=== PATIENT | female | born 1955 | race Caucasian/White ===

== ENCOUNTER → 2017-06-20 | Outpatient (CLI) | payer MEDICARE, MEDICAID ==
[2014-01-02 12:57] VITALS: BMI 30.4
[~2017-06-20] MED LIST: ALBU8.5H IH; ARIP10TA4 PO; ASPI-1471 PO; ATOR40TA69 PO; BUPR-126 PO; CHOL100062 PO; CLIN300C99 PO; CLON-298; DESV50TA9; DESV50TA9 PO; ESOM40CA42 PO; EZET10TA41 PO; FLUT1DIS29 IH; FURO-47; GABA-549 PO; GUAI1200 PO; LEVO75TA73 PO; LOSA25TA50 PO; Levofloxacin PO; MELA3TAB14; MELA5TAB6 PO; MORP60CA7 PO; MORP80CA; MORP80CA PO; MULT1TAB64 PO; Morphine Sulfate PO; OXYC-375 PO; OXYC-823 PO; OXYC15TA79 PO; OXYC30TA79; OXYC30TA79 PO; OXYC5TAB38 PO; Oxycodone Hcl PO; POTA-23; PRED20TA6 PO; PROM-110 PO; RALO60TA PO; RALO60TA12 PO; RAME8TAB43 PO; ROZEREM; SENN8.6T34 PO; TIZA-128; TIZA4CAP3 PO; TRAZ-156; TRAZ-163 PO; VALS160T22 PO; VALS160T7; WARF5TAB23; WARF5TAB23 PO; ZOLP6.2530; [UNRECOGNIZED DRUG - CODE] OP; [UNRECOGNIZED DRUG - CODE] PO
--- NOTE | 2017-06-24 21:21 | RADIOLOGY IMAGING REPORT ---
FACILITY: [facility] [place] PATIENT NAME: MARINO HALL : [id number] MR: [id number] V: [id number] EXAM DATE: ORDERING PHYSICIAN: DOMENICA TOWNSEND TECHNOLOGIST: Anh Rothman EXAMINATION:TWO-DIMENSIONAL ECHOCARDIOGRAPH REASON:CAD/2 VESSEL CABG 2D Measurements (normal values in centimeters) LV endLV endRV endVent.LV PostAorticLeftPercent DiastolicSystolicDiastolicSeptumWallRootAtriumShortening (3.5-5.7)(0.9-2.6)(0.6-1.1)(0.6-1.1)(2.0-3.7)(1.9-4.0)(25-35%) [id number]% STROKE VOLUME: 51ml ESTIMATED EJECTION FRACTION:55% PARASTERNAL LONG AXIS: Overall left ventricular systolic function does appear to be normal. No specific wall motion abnormalities were noted in this view. Color examination of the valves reveals a trace of mitral insufficiency present. Aortic valve appears to open normally. Mitral valve appears to open normally. Color examination of the aortic valve was unremarkable. PARASTERNAL SHORT AXIS: Overall left ventricular systolic function again appears to be normal. Aortic valve was trileaflet in configuration & appears to open normally. The pulmonic valve also appears to open normally. Color examination of the pulmonic valve reveals a trace of pulmonic insufficiency. Color examination of the aortic valve was unremarkable. APICAL FOUR AND TWO CHAMBER: Normal left ventricular ejection fraction but there is akinesis at the apex of the left ventricle. Trace of tricuspid insufficiency is noted. The tricuspid regurgitation Vmax measured 2.22m/sec. Aortic valve area & mitral valve area both measured within normal ranges at 2.8 & 3.4cm2 respectively. Left atrial volume is mildly increased at 30ml/m2. Right atrial volume is mildly increased at 28ml/m2. SUBCOSTAL VIEW: No pericardial effusion was noted. No atrioseptal or ventriculoseptal defects were noted. Right ventricle appears to contract normally & the TAPSE is measured within normal ranges at 2.6. Definity contrast was used. No thrombus was noted in the apex of the left ventricle. Left atrial appendage was not seen. Doppler examination of the mitral valve in diastole does reveal the A wave > E wave. IVC is enlarged at 2.8cm. OVERALL IMPRESSION: 1. Normal left ventricular ejection fraction of 55%. There is a Grade 1/4 decrease in diastolic function. 2. There does appear to be an area of akinesis at the apex of the left ventricle and the apical portion of the interventricular septum. Definity contrast was used & no thrombus was noted in the apex of the left ventricle. Left atrial appendage was not seen. 3. Right ventricle appears to contract normally. 4. There is a trace of mitral, tricuspid & pulmonic insufficiency with right ventricular systolic pressures at 35mm Hg. that does include an estimated right atrial pressure of 15mm Hg as the IVC appears to be dilated. 5. Mild right atrial & left atrial enlargement with the right ventricle being the upper range of normal in size. The left ventricle is normal in size. 6. A trileaflet aortic valve with no abnormalities. 7. In comparison to the examination done on 07/07/13, the ejection is approximately the same. Diastolic function appears to have gotten slightly better. Right ventricular systolic pressures are slightly elevated but still within normal ranges although the estimated right atrial pressure is increased from 10 to 15mm Hg. Dictated by: Myesha Jensen M.D. on 06/24/2017 at 9:33 Transcribed by: LAILA on 06/24/2017 at 10:57 Approved by: Myesha Jensen M.D. on 06/24/2017 at 21:19 [facility]
== END ==
LOC: US 04:00
PROVIDERS: ATTEND Internal Medicine Cardiovascular Disease
DX: I50.30 Unspecified diastolic (congestive) heart failure (principal); Q21.0 Ventricular septal defect; I34.0 Nonrheumatic mitral (valve) insufficiency; I07.1 Rheumatic tricuspid insufficiency; I37.1 Nonrheumatic pulmonary valve insufficiency; I51.7 Cardiomegaly
CPT/HCPCS: C8929; Q9957

== ENCOUNTER → 2017-12-12 | Outpatient (CLI) | payer MEDICARE, MEDICAID ==
[2014-01-02 12:57] VITALS: BMI 30.4
[~2017-12-12] MED LIST changes: -CLON-298; +CLON-331; -LOSA25TA50 PO; +LOSA25TA52 PO; -OXYC-375 PO; +OXYC1TAB78 PO; -TRAZ-156; -TRAZ-163 PO; +TRAZ100T31 PO; +TRAZ50TA34; -VALS160T7; +VALS160T8
--- NOTE | 2017-12-12 10:28 | RADIOLOGY IMAGING REPORT ---
FACILITY: PATIENT NAME: Keely Garcia : 1955 MR: [id number] V: [id number] EXAM DATE: ORDERING PHYSICIAN: SASCHA KUMAR TECHNOLOGIST: Location: [facility] Patient: Keely Garcia : 1955 Visit/Account:[id number] Date of Sevice: 12/12/2017 DEXA Scan Clinical history: Give osteopenia, neck pain, postmenopausal. Comparison: DEXA scan from 04/12/2013. LUMBAR SPINE: The bone mineral density (BMD) measured from L1-L4 correlates with a Z-score of 0.8 and a T-score of -0.4 which is Normal as defined by the World Health Organization. The corresponding risk of fracture in the lumbar spine is Not increased compared with a young adult reference population. This value h as decreased by 2.2 % since the prior study. More than 5% change is considered significant. HIP: Bone mineral density (BMD) measured in the LEFT total hip region correlates with a Z-score -1.5 and a T-score of is 2.5 which is osteoporosis as defined by the World Health Organization. The correspond ing risk of fracture in the hip is 6 times increased compared to a young adult reference population. This value has decreased by 1.7 % since the prior study. More than 5% change is considered significa nt. T score left femoral neck -2.7 Bone mineral density (BMD) measured in the Femoral Neck region measures 0.658 g/cm?. IMPRESSION: 1. Lumbar spine: Normal. There has been 2.2% decrease in the bone mineral density since the previou s exam. 2. Left Total Hip: Osteoporosis. There has been 1.7% decrease in the bone mineral density since the previous exam. 3. Femoral Neck: Bone Mineral Density is 0.658 g/cm? The next DEXA scan of this patient should include the following sites: L1-L4 and the left hip. FRAX? WHO Fracture Risk Assessment Tool link: <http://www.shef.ac.uk/FRAX/tool.jsp?locationValue=9> PLEASE NOTE: 1) The World Health Organization defines low BMD as follows: T-score Normal > -1 Osteopenia < -1 and > -2.5 Osteoporosis < -2.5 without fractures Established osteoporosis < -2.5 with fractures 2) In general, you may wish to consider: Diagnosis Treatment Follow-up DEXA Normal BMD Prevention 2-3 years Osteopenia Prevention/therapy 1-2 years Osteoporosis Therapy Yearly 3) Fracture risk estimated from the T-score is more accurate for vertebral fractures (often spontane ous) than for hip fractures. Report Dictated By: Sandy Villatoro MD at 12/12/2017 10:07 AM Report E-Signed By: Sandy Villatoro MD at 12/12/2017 10:25 AM WSN:[email or web address]
== END ==
LOC: RAD 04:22
PROVIDERS: ATTEND Family Medicine
DX: M81.0 Age-related osteoporosis without current pathological fracture (principal)
CPT/HCPCS: 77080